=== PATIENT | male | born 1960 | race Caucasian/White ===

== ENCOUNTER 2017-04-19 06:00 | Day surgery (SDC) | payer OTHER ==
[2017-04-19] MEDS ORDERED: Lactated Ringers 1,000 ML IV SCH (06:30)
--- NOTE | 2017-04-19 08:31 | OP ---
SURGERY DATE/TIME: 04/19/2017 0745 PREOPERATIVE DIAGNOSIS: Screening exam. POSTOPERATIVE DIAGNOSIS: Normal colon. PROCEDURE: Colonoscopy. SURGEON: Dr. Clifton. ANESTHESIA: MAC. Medications given by anesthesia department. HISTORY: The patient is a 56 year-old white male patient presenting now for his first screening colonoscopy. He was appraised of the risks of the procedure including the risk of perforation, phlebitis, untoward reaction to medication, bleeding, and missed lesions. The patient verbalized his understanding and desired to have the procedure performed. DESCRIPTION OF PROCEDURE: The patient was given the medications by the anesthesia department. The patient had continuous pulse oximetry, ECG monitoring, intermittent blood pressure monitoring, and tidal CO2 monitoring during the examination. He was placed in the left lateral decubitus position. A digital rectal examination was performed and revealed normal anal sphincter tone and no masses and normal prostae. The flexible Olympus pediatric colonoscope was used to intubate the rectum. A view of the colon was developed sequentially to the cecum. Upon insertion and withdrawal, including a retroflex view in the rectum, no mucosal lesions were encountered. The scope was removed from the patient who tolerated the procedure well and was sent back to OP recovery in good condition. The prep was noted to be fair.
[2017-04-19 08:45] VITALS: PULSE 66
[2017-04-19 08:59] VITALS: BP 129/82; O2SAT 98
[2017-04-19] MEDS ORDERED: DIPRIVAN 200 MG/20 ML IV ONE ×2 (09:00)
[2017-04-19] MEDS ORDERED: Versed 2 MG/2 ML Injection IV ONE (09:00)
== END 2017-04-19 09:05 | disposition home or self-care (01) ==
LOC: SDC 06:00
PROVIDERS: ATTEND Family Medicine
PROC: 0DJD8ZZ Inspection of Lower Intestinal Tract, Via Natural or Artificial Opening Endoscopic (ICD-10-PCS; principal; 2017-04-19)
DX: Z12.11 Encounter for screening for malignant neoplasm of colon (principal)
CPT/HCPCS: 00810; J2250; J2704

== ENCOUNTER 2017-08-26 05:57 | Day surgery (SDC) | payer OTHER ==
[2017-08-26] MEDS ORDERED: Versed 2 MG/2 ML Injection IV ONE (05:58)
[2017-08-26] MEDS ORDERED: DIPRIVAN 200 MG/20 ML IV ONE (05:58)
[2017-08-26] MEDS ORDERED: Lactated Ringers 1,000 ML IV SCH (07:00)
[2017-08-26 08:36] VITALS: BP 137/72; PULSE 18; O2SAT 98
--- NOTE | 2017-08-26 14:11 | OP ---
SURGERY DATE/TIME: 08/26/2017 0733 PREOPERATIVE DIAGNOSIS: Chest pain. POSTOPERATIVE DIAGNOSIS: Hiatal hernia. PROCEDURE: Esophagogastroduodenoscopy with biopsy. SURGEON: Dr. Clifton. ANESTHESIA: Medications were given by the anesthesia department. HISTORY: The patient is a 56 year old white male patient presenting now with complaints of chest pain. He reports the pain at times radiates through to his back. He was felt the need to have endoscopic evaluation. He was appraised of the risks of the procedure including the risk of perforation, phlebitis, untoward reaction to medication, bleeding and missed lesions. The patient verbalized his understanding and desired to have the procedure performed. DESCRIPTION OF PROCEDURE: The patient was given the medications by the anesthesia department. He had continuous pulse oximetry, ECG monitoring, intermittent blood pressure monitoring and tidal CO2 monitoring during the examination. He was placed in the left lateral decubitus position. A bite block was placed. A flexible Olympus gastroscope was used to intubate the oropharynx. A view of the larynx was obtained and was normal. The scope was introduced in the esophagus. There appeared to be a hiatal hernia in the lower portion of the esophagus. The stomach was entered where normal gastric rugal folds were seen and these distended nicely with insufflation of air. The scope was passed along the greater curvature of the stomach to the antrum. The pylorus was encountered and intubated. The duodenum was inspected and found to be normal. The scope was withdrawn towards the stomach. Retroflex view of the lesser curvature, fundus and cardia regions of the stomach again revealed hiatal hernia but no other mucosal lesions were encountered. The scope was then redirected towards the gastric antrum where biopsies were obtained to rule out the presence of Helicobacter pylori-type organisms. The scope was then removed from the patient who tolerated the procedure well and was sent back to outpatient recovery in good condition.
== END 2017-08-26 09:25 | disposition home or self-care (01) ==
LOC: SDC 05:57
PROVIDERS: ATTEND Family Medicine
PROC: 0DB68ZX Excision of Stomach, Via Natural or Artificial Opening Endoscopic, Diagnostic (ICD-10-PCS; principal; 2017-08-26)
DX: K44.9 Diaphragmatic hernia without obstruction or gangrene (principal)
CPT/HCPCS: 00740; 36415; 88305; J2250; J2704

== ENCOUNTER 2024-12-09 08:25 | Emergency (ER) | payer MEDICARE ==
[2024-12-09 08:43] VITALS: TEMP 97.3
--- NOTE | 2024-12-09 08:59 | ERPHSYRPT ---
- History of Present Illness Time Seen by Provider: 12/09/24 08:50 Source: patient Exam Limitations: no limitations Patient Subjective Stated Complaint: here for numbness to right leg and righ shoulder Triage Nursing Assessment: pt is here for numbness to right lower leg and right shoulder off and on for 2-3 days now, no injury, resp easy, chest clear, abd soft, moves all ext well,strong clerical adviser Physician History: 64-year-old male presents to our ED for evaluation of numbness to his right face right shoulder and right leg. Symptoms started about 2 to 3 days ago. Patient reports that he did not immediately seek attention as he felt the numbness was related to his medication. Patient reports that the facial numbness has since resolved. However the shoulder numbness has improved but not completely resolved. The leg numbness is unchanged. No trauma no fever no weakness. No headache. No nausea no vomiting no diarrhea no rash. No slurred speech no facial droop. No chest pain or shortness of breath. Patient's symptoms are mild to moderate in intensity. No specific worsening or improving factors. Patient denies a history of the same. He otherwise feels well. Patient voices no other complaints or concerns at this time. Patient took 325 mg of aspirin prior to arrival Portions of this note were created with voice recognition technology. There may be grammatical, spelling, punctuation or sound alike errors Timing/Duration: day(s) (2 to 3 days ago) Severity: moderate Modifying Factors: Improves With: nothing Associated Symptoms: denies symptoms Allergies/Adverse Reactions: No Known Drug Allergies Allergy (Verified 12/09/24 08:32) Home Medications: Cetirizine HCl [Zyrtec] 10 mg PO DAILY 04/18/17 [History] LORazepam [Ativan] 1 mg PO BID 04/18/17 [History] Metoprolol Succinate [Toprol Xl] 100 mg PO DAILY 04/18/17 [History] Omeprazole 20 MG [Prilosec 20 mg] 20 mg PO DAILY 04/18/17 [History] Acyclovir 800 mg [Acyclovir] 1 ea TID 12/09/24 [History] Podofilox 1 ea DAILY 12/09/24 [History] Hx Tetanus, Diphtheria Vaccination/Date Given: No Hx Influenza Vaccination/Date Given: Yes Hx Pneumococcal Vaccination/Date Given: Yes Immunizations Up to Date: Yes Travel Risk - International Travel Have you traveled outside of the country in past 3 weeks: No - Review of Systems Constitutional: No Symptoms, No Fever, No Chills Eyes: No Symptoms Ears, Nose, & Throat: No Symptoms Respiratory: No Symptoms, No Cough, No Dyspnea Cardiac: No Symptoms, No Chest Pain, No Edema, No Syncope Abdominal/Gastrointestinal: No Symptoms, No Abdominal Pain, No Nausea, No Vomiting, No Diarrhea Genitourinary Symptoms: No Symptoms, No Dysuria Musculoskeletal: No Symptoms, No Back Pain, No Neck Pain Skin: No Symptoms, No Rash Neurological: No Symptoms, No Dizziness, No Focal Weakness, No Sensory Changes Psychological: No Symptoms Endocrine: No Symptoms Hematologic/Lymphatic: No Symptoms Immunological/Allergic: No Symptoms All Other Systems: Reviewed and Negative - Past Medical History Pertinent Past Medical History: Yes Neurological History: No Pertinent History ENT History: No Pertinent History Cardiac History: Hypertension Respiratory History: No Pertinent History Endocrine Medical History: No Pertinent History Musculoskeletal History: No Pertinent History GI Medical History: GERD History: No Pertinent History Psycho-Social History: Anxiety Male Reproductive Disorders: No Pertinent History Other Medical History: 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 - Past Surgical History Past Surgical History: No Neuro Surgical History: No Pertinent History Cardiac: No Pertinent History Respiratory: No Pertinent History Gastrointestinal: No Pertinent History Genitourinary: No Pertinent History Musculoskeletal: No Pertinent History Male Surgical History: No Pertinent History - Social History Smoking Status: Never smoker Exposure to second hand smoke: No Drug Use: none - Social Determinants of Health Will the patient participate in the screening: Yes Do you worry about a steady place to live?: No Do you have any problems with any of the following?: No known problems In the past 12 months,have you had to go without utilities?: No Transportation Issues: No Has anyone in your support network made you feel unsafe?: No Have you or anyone in your house had to go without enough: No - Nursing Vital Signs Nursing Vital Signs: Initial Vital Signs Pulse Rate 90 12/09/24 08:32 Respiratory Rate 14 12/09/24 08:32 Blood Pressure 188/113 12/09/24 08:32 O2 Sat by Pulse Oximetry 98 12/09/24 08:32 Pain Scale Pain Intensity 0 - Physical Exam General Appearance: no apparent distress, alert Eye Exam: PERRL/EOMI, eyes nml inspection Ears, Nose, Throat Exam: normal ENT inspection, TMs normal, pharynx normal, moist mucous membranes Neck Exam: normal inspection, non-tender, supple, full range of motion Respiratory Exam: normal breath sounds, lungs clear, No respiratory distress Cardiovascular Exam: regular rate/rhythm, normal heart sounds, normal peripheral pulses Gastrointestinal/Abdomen Exam: soft, normal bowel sounds, No tenderness, No mass Back Exam: normal inspection, normal range of motion, No CVA tenderness, No vertebral tenderness Extremity Exam: normal inspection, normal range of motion, pelvis stable Neurologic Exam: alert, oriented x 3, cooperative, normal mood/affect, sensation nml, No motor deficits Skin Exam: normal color, warm, dry, No rash Lymphatic Exam: No adenopathy SpO2 Interpretation: normal SpO2: 98 O2 Delivery: Room Air - Course Nursing assessment & vital signs reviewed: Yes EKG Interpreted by Me: RATE (91), Sinus Rhythm, NORMAL AXIS, NORMAL INTERVALS, NORMAL QRS - CT Exams Head CT Interpretation: Tele-radiologist Report (Old left lacunar infarct left basal ganglia. No acute intracranial findings) Ordered Tests: Active Orders 24 hr Category Date Time Status Head Bone Grinder STAT Care 12/09/24 08:49 Active EKG-ER Only STAT Care 12/09/24 08:48 Active IV Insertion STAT Care 12/09/24 08:48 Active Pulse Oximetry (ED) STAT Care 12/09/24 08:48 Active Tele-Health Consult ROUTINE Cons 12/09/24 11:19 Active HEAD WITHOUT CONTRAST [CT] Stat Exams 12/09/24 08:50 Completed CBC W DIFF Stat Lab 12/09/24 08:58 Completed CMP Stat Lab 12/09/24 08:58 Completed TROPONIN Q4H Lab 12/09/24 08:58 Completed TROPONIN Q4H Lab 12/09/24 13:00 Ordered TROPONIN Q4H Lab 12/09/24 17:00 Ordered Medication Summary Generic Name Dose Route Start Last Admin Trade Name Freq PRN Reason Stop Dose Admin Sodium Chloride 1,000 mls @ 50 mls/hr 12/09/24 09:00 12/09/24 09:21 Sodium Chloride 0.9% 1000 Ml IV 01/08/25 08:59 50 mls/hr .Q20H PRISCILA Administration Lab/Rad Data: Laboratory Result Diagrams 12/09/24 08:58 12/09/24 08:58 Laboratory Results 12/09/24 12/09/24 12/09/24 Range/Units 08:58 08:58 08:58 WBC 7.7 (4.23-9.07) x10^3/uL RBC 4.93 (4.63-6.08) x10^6/uL Hgb 15.3 (13.7-17.5) g/dL Hct 44.7 (40.1-51.0) % MCV 90.7 (79.0-92.2) fL MCH 31.0 (25.7-32.2) pg MCHC 34.2 (32.3-36.5) g/dL RDW 12.4 (11.6-14.4) % Plt Count 218 (163-337) x10^3/uL MPV 9.8 (9.4-12.4) fL Gran % 70.8 H (34.0-67.9) % Immature Gran % (Auto) 0.3 (0.001-0.429) % Nucleat RBC Rel Count 0.0 (0.00-0.2) % Eos # (Auto) 0.03 L (0.04-0.54) x10^3/uL Immature Gran # (Auto) 0.02 (0.001-0.031) x10^3u/L Absolute Lymphs (auto) 1.57 (1.32-3.57) x10^3/uL Absolute Monos (auto) 0.59 (0.30-0.82) x10^3/uL Absolute Nucleated RBC 0.00 (0.00-0.012) x10^3u/L Lymphocytes % 20.4 L (21.8-53.1) % Monocytes % 7.7 (5.3-12.2) % Eosinophils % 0.4 L (0.8-7.0) % Basophils % 0.4 (0.2-1.2) % Absolute Granulocytes 5.46 H (1.78-5.38) x10^3/uL Basophils # 0.03 (0.01-0.08) x10^3/uL Sodium 139 (135-145) mmol/L Potassium 4.0 (3.5-5.1) mmol/L Chloride 105 (98-107) mmol/L Carbon Dioxide 25 (22-30) mmol/L Anion Gap 12.6 (5-15) MEQ/L BUN 17 (9-20) mg/dL Creatinine 1.04 (0.66-1.25) mg/dL Estimated GFR 79.2 ML/MIN Glucose 128 H (74-106) mg/dL Calcium 9.1 (8.4-10.2) mg/dL Total Bilirubin 0.50 (0.2-1.3) mg/dL AST 35 (17-59) U/L ALT 36 (0-50) U/L Alkaline Phosphatase 108 (38-126) U/L Troponin I < 0.012 (0.000-0.033) ng/mL Serum Total Protein 7.1 (6.3-8.2) g/dL Albumin 4.2 (3.5-5.0) g/dL - Progress Progress: improved Progress Note: 64-year-old male presents to our ED for evaluation of numbness to his face shoulder and right leg. CT shows no acute intracranial pathology however there was a left lacunar basal ganglier infarct. Laboratory workup essentially nonremarkable. Teleneurology consulted. Neurologist advises hospitalization daily aspirin statin MRI. However patient states he has home obligations. He cannot stay. Patient will be leaving AMA. Patient will continue taking the aspirin as recommended. He will contact his primary care doctor for the MRI and other recommendations per the neurologist. Patient will be discharged AGAINST MEDICAL ADVICE. Risk and benefits discussed. Patient is of sound mind. Patient is appropriate to make informed and independent medical decisions. Patient understands that leaving AGAINST MEDICAL ADVICE can result in delayed diagnosis, increased risk of morbidity, mortality, short and long-term disability including . In spite of these risks, patient has decided to leave AGAINST MEDICAL ADVICE. Patient understands that he may return to our ED at any point if he reconsiders. Patient agrees to follow-up with his primary care doctor within 48 hours for reevaluation. Patient voices no other complaints or concerns at this time. We will release patient AGAINST MEDICAL ADVICE per their request. Complexity of problem addressed is moderate acute complicated. No critical care time. Complex of data reviewed and analyzed is extensive. Test ordered chest reviewed results analyzed and correlated clinically with history and physical exam. I discussed the case with neurologist at 11:49 AM. He advised hospitalization. Other recommendations made as well. Please see his note for details. Risk of complication and or risk of morbidity/mortality of patient man agement is low. Vital stable. Time spent to discharge patient approximately 15 minutes. Patient has decided to leave AMA. No social determinants of health present to impede follow-up. Portions of this note were created with voice recognition technology. There may be grammatical, spelling, punctuation or sound alike errors 12/09/24 11:58 Counseled pt/family regarding: lab results, diagnosis, need for follow-up, rad results - Departure Departure Disposition: AMA Clinical Impression: Stroke, Leg numbness Condition: Stable Critical Care Time: No Referrals: LETA HIGH MD [Primary Care Provider] - Follow up/PCP as directed Additional Instructions: Discharge/Care Plan CRISSY PATEL was seen on 12/09/24 in the Emergency Room. The patient was counseled regarding Diagnosis,Lab results, Imaging studies, need for follow up and when to return to the Emergency Room. Prescriptions given: Discharge Note I have spoken with the patient and/or caregivers. I have explained the patient's condition, diagnosis and treatment plan based on the information available to me at this time. I have answered the patient's and/or caregiver's questions and addressed any concerns. The patient and/or caregivers have as good understanding of the patient's diagnosis, condition and treatment plan as can be expected at this point. The vital signs have been stable. The patient's condition is stable and appropriate for discharge from the emergency department. The patient will pursue further outpatient evaluation with the primary care physician or other designated or consulting physician as outlined in the discharge instructions. The patient and/or caregivers are agreeable to this plan of care and follow-up instructions have been explained in detail. The patient and/or caregivers have received these instruction. The patient/and or caregivers are aware that any significant change in condition or worsening of symptoms should prompt an immediate return to this or the closest emergency department or call 911.
[2024-12-09 09:00] LABS: Absolute Neutrophil Ct (ANC) 5.46 x10^3/uL (1.78-5.38); BASOPHIL % 0.4 % (0.2-1.2); Basophil (Absolute #) 0.03 x10^3/uL (0.01-0.08); Eosinophil % 0.4 % (0.8-7.0); Eosinophil (Absolute #) 0.03 x10^3/uL (0.04-0.54); Hematocrit 44.7 % (40.1-51.0); Hemoglobin 15.3 g/dL (13.7-17.5); IMMATURE GRAN # 0.02 x10^3u/L (0.001-0.031); IMMATURE GRAN % 0.3 % (0.001-0.429); Lymphocyte (Absolute #) 1.57 x10^3/uL (1.32-3.57); Lymphocytes % 20.4 % (21.8-53.1); Mean Cell Volume 90.7 fL (79.0-92.2); Mean Corpuscular Hgb Concent. 34.2 g/dL (32.3-36.5); Mean Platelet Volume 9.8 fL (9.4-12.4); Monocyte (Absolute #) 0.59 x10^3/uL (0.30-0.82); Monocytes % 7.7 % (5.3-12.2); Neutrophil % 70.8 % (34.0-67.9); Platelet Count 218 x10^3/uL (163-337); Red Blood Count 4.93 x10^6/uL (4.63-6.08); Red Cell Distribution Width 12.4 % (11.6-14.4); White Blood Count 7.7 x10^3/uL (4.23-9.07)
[2024-12-09 09:14] LABS: Creatinine 1 1.04 mg/dL (0.66-1.25); EST GLOMERULAR FILTRATION RATE 79.2 ML/MIN
[2024-12-09 09:15] LABS: ALBUMIN 4.2 g/dL (3.5-5.0); ANION GAP 12.6 MEQ/L (5-15); BILIRUBIN,TOTAL 0.5 mg/dL (0.2-1.3); Calcium 9.1 mg/dL (8.4-10.2); Total Protein 7.1 g/dL (6.3-8.2)
[2024-12-09] MEDS ORDERED: Sodium Chloride 0.9% 1000 ML 1,000 ML ONE (09:19)
[2024-12-09] MEDS: Sodium Chloride 0.9% 1000 ML 1,000 ML IV SCH (09:21)
--- NOTE | 2024-12-09 09:40 | XRAY ---
Indication: Right leg and right facial numbness. Multiple contiguous images obtained through the head without contrast. Comparison: None Ventriculosulcal pattern appears symmetric. 6 mm remote lacunar infarct left basal ganglia. No acute intracranial hemorrhage, abnormal extra-axial fluid collection, or mass effect. Fourth ventricle is midline without hydrocephalus. José-white matter differentiation preserved. Bony calvarium intact. Visualized paranasal sinuses and mastoid air cells are clear. Impression: Remote lacunar infarct left basal ganglia. No acute intracranial abnormalities.
[2024-12-09 11:19] VITALS: BP 158/108; PULSE 70; RESP 18
--- NOTE | 2024-12-09 11:42 | PCM.CONS ---
History of Present Illness - Reason for Consult Chief Complaint: Right sided numbness and R shoulder pain Date of Consultation Date: 12/09/24 Reason for Consult: Stroke like sx Requesting Provider: Dr. Flores Consulting Provider: ROJAS GARCÍA MD History of Present Illness: Reason for Consultation: stroke like symptoms Chief complaint: right leg numbness and right shoulder pain HPI: this is a 64 year old right-handed white male with past medical history of hypertension, gastroesophageal reflux disease who came to the hospital because of right lower extremity numbness as well as right shoulder pain. He noted this today at 7:00 AM. He woke up at around 6:00 AM and was fine. When I asked whether he experienced it yesterday or the day before yesterday, patient denied it to me. However to the ER physician, patient told that the symptoms are going on for the last two to three days. He denies any weakness. No facial droop. No slurred speech or aphasia. No headache. When I asked about the numbness on the right side of the face, he did mention that right side of the face feels somewhat funny. He's not currently on aspirin. He told me that he used to be an aspirin about 10 years ago but he stopped using it because it gave him Constipation and when he stopped using aspirin, his Constipation got better period Vitals blood pressure 156 / 107 pulse 85 pulse ox of 96 breathing rate of 16 temperature of 97.3 labs reviewed and it chose WBC of 7.7 hemoglobin 15.3 hematocrit 44.7 platelet count of 2/18 sodium 139 potassium 4.0 chloride 105 bicarb 25 BUN 17 creatinine 1.04 City scan showed remote lacunar infarct in the left basal ganglia. no known drug allergies Medical history: diabetes Surgical history: UR Family history: HTN DM Social history: no smoking, alcohol use REVIEW OF SYSTEMS: 12-point review of system is negative unless otherwise mentioned in the HPI VITALS Vitals reviewed from today Physical Exam: Constitutional: Gen: NAD, pleasant, well nourished HEENT: NC/AT STEPHANIE MMM Neurologic Exam: Higher Functions: AA&Ox3; Tracks; Regards Follows simple and complex commands Communicates fluently and appropriately Memory is intact Concentration is normal Fund of Knowledge is appropriate. Language : Comprehension is intact; no aphasia; no dysarthria; repetition is intact; naming is normal; scene description is normal CN II : Visual youssef are full; Pupils constrict from 4mm to 2mm under bright light, are equal, round, and react briskly. CN III, IV, : EOMI; no nystagmus CN V : Facial sensation is full and symmetric CN VII : Facial movement is full and symmetric CN VIII : hearing intact BL CN IX, X : ANNETTE CN XI : SCM 5/5 BL CN XII : Tongue protrudes midline without fasciculations Sensory : intact to soft touch Motor : Strength 5/5 UE and LE BL Deep tendon reflexes : ANNETTE Plantar response : ANNETTE Jaazax-yi-Zafm : normal BL, no dysmetria Abnormal Movements : none seen Gait and Station : Normal (walked from the restroom to bed) NIH Stroke Scale 0 (0) 1a. Level of consciousness (LOC): 0=alert;1=arousable by minor stimulation;2=obtunded or needs strong stimulation to attend;3=unresponsive or reflex responses only (0) 1b. LOC Questions: 0=answers both;1=answers one;2=answers neither (0) 1c. LOC Commands: 0=performs both tasks;1=performs one task;2=performs neither task (0) 2. Best Gaze: 0=normal;1=partial gaze palsy;2=forced deviation or total gaze paresis (0) 3. Visual: 0=normal;1=partial hemianopia;2=complete hemianopia;3=blind (0) 4. Facial palsy: 0=normal;1=minor paresis;2=partial paralysis;3=complete paralysis FOR 5 AND 6 BELOW: 0=normal;1=drifts but maintains in air;2=unable to maintain in air;3=moves but unable to lift against gravity;4=no movement ( )0 (_)1 (_)2 (_)3 (_)4 (_)NA 5a. Motor arm-left ( )0 (_)1 (_)2 (_)3 (_)4 (_)NA 5b. Motor arm-right ( )0 (_)1 (_)2 (_)3 (_)4 (_)NA 6a. Motor leg-left ( )0 (_)1 (_)2 (_)3 (_)4 (_)NA 6ba. Motor leg-right ( ) 7. Limb ataxia:0=absent;1=unilateral;2=bilateral; NA=unable to test ( ) 8. Sensory: 0=normal;1=mild-moderate loss;2-severe or total loss ( ) 9. Best language: 0=normal;1=mild-moderate aphasia, some deficits apparent but able to communicate;2=severe aphasia, fragmentary expression only, unable to communicate well;3=global aphasia, mute and no comprehension ( ) 10. Dysarthria: 0=normal;1=mild-moderate, slurs some words;2=severe, speech mostly unintelligible; NA=unable to test (e.g.,intubation) ( ) 11. Extinction/Inattention: 0=normal;1=visual,tactile,auditory or other extinction to bilateral simultaneous stimulation, but no severe neglect;2=answers neither Imaging CTH -ve CTA CTP ASPECTS Candidate for Thrombolytics: not a candidate because of low NIH stroke scale of zero. He subjectively feels numb but sensations are intact bilaterally. Candidate for Intervention: Assessment: 64 year old white male came to the hospital because of right lower extremity numbness right shoulder pain. Right sided numbness: patient noted symptoms at around 7:00 AM this morning. He woke up at 6:00 AM and was fine. He noted right leg to be numb and right shoulder hurting. When I asked about the face numbness on the right side, he did mention that it felt different. Patient told the ER physician that this is going on for the last two to three days. Cat scan was obtained which showed lacunary stroke in the left basal ganglia which could be either chronic versus subacute. Not a candidate for TNK as a nice stroke scale is zero. He subjectively feels numb but sensations are intact (RN checked it for me) Plan: We'll recommend getting a MRI of brain and CT angiogram head and neck also mentioned to patient that he should be on a baby aspirin at 1 milligram and atorvastatin 40 milligram. For the recommendation based on the imaging studies. If MRI brain is positive for stroke, patient will need a formal stroke order set and stroke workup including echo cardiogram. Communicated plan with the emergency room physician RN and to the patient. I spent 70 minutes in emergent patient care. Thank you for allowing us to participate in this patients care. Please call [facility] with questions, concerns, or change in patients neurological status. This consult was performed via secure telemedicine 2 way audio/visual platform, patient consent obtained. Medications & Allergies Home Medications: Home Medication List Cetirizine HCl [Zyrtec] 10 mg PO DAILY 04/18/17 [History Confirmed 12/09/24] LORazepam [Ativan] 1 mg PO BID 04/18/17 [History Confirmed 12/09/24] Metoprolol Succinate [Toprol Xl] 100 mg PO DAILY 04/18/17 [History Confirmed 12/09/24] Omeprazole 20 MG [Prilosec 20 mg] 20 mg PO DAILY 04/18/17 [History Confirmed 12/09/24] Acyclovir 800 mg [Acyclovir] 1 ea TID 12/09/24 [History Confirmed 12/09/24] Podofilox 1 ea DAILY 12/09/24 [History Confirmed 12/09/24] Allergies/Adverse Reactions: Allergies Allergy/AdvReac Type Severity Reaction Status Date / Time No Known Drug Allergies Allergy Verified 12/09/24 08:32 - Past Medical History Past Medical History: Yes Neurological History: No Pertinent History ENT History: No Pertinent History Cardiac History: Hypertension Respiratory History: No Pertinent History Endocrine Medical History: No Pertinent History Musculoskelatal History: No Pertinent History GI Medical History: GERD History: No Pertinent History Pyscho-Social History: Anxiety Male Reproductive Disorders: No Pertinent History Comment: 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 - Past Surgical History Past Surgical History: No Neuro Surgical History: No Pertinent History Cardiac History: No Pertinent History Respiratory Surgery: No Pertinent History GI Surgical History: No Pertinent History Genitourinary Surgical Hx: No Pertinent History Musculskeletal Surgical Hx: No Pertinent History Male Surgical History: No Pertinent History - Social History Smoking Status: Never smoker Exposure to second hand smoke: No Alcohol: Daily Drug Use: none - Social Determinants of Health Will the patient participate in the screening: Yes Do you worry about a steady place to live?: No Do you have any problems with any of the following?: No known problems In the past 12 months,have you had to go without utilities?: No Have you or anyone in your house had to go without enough: No Transportation Issues: No Has anyone in your support network made you feel unsafe?: No - Physical Exam Vital Signs: Vital Signs - 24 hr Temp Pulse Resp BP BP Pulse Ox 12/09/24 11:00 70 18 158/108 96 12/09/24 10:30 68 18 153/98 97 12/09/24 10:00 72 18 161/107 96 12/09/24 09:54 98 12/09/24 09:30 85 16 156/107 96 12/09/24 09:06 80 16 159/107 96 12/09/24 08:52 98 12/09/24 08:41 97.3 F 93 H 16 186/116 98 12/09/24 08:39 186/116 98 12/09/24 08:32 90 14 188/113 98 Results - Labs Lab/Micro Results: Lab Results-Last 24 Hours 12/09/24 12/09/24 12/09/24 Range/Units 08:58 08:58 08:58 WBC 7.7 (4.23-9.07) x10^3/uL RBC 4.93 (4.63-6.08) x10^6/uL Hgb 15.3 (13.7-17.5) g/dL Hct 44.7 (40.1-51.0) % MCV 90.7 (79.0-92.2) fL MCH 31.0 (25.7-32.2) pg MCHC 34.2 (32.3-36.5) g/dL RDW 12.4 (11.6-14.4) % Plt Count 218 (163-337) x10^3/uL MPV 9.8 (9.4-12.4) fL Gran % 70.8 H (34.0-67.9) % Immature Gran % (Auto) 0.3 (0.001-0.429) % Nucleat RBC Rel Count 0.0 (0.00-0.2) % Eos # (Auto) 0.03 L (0.04-0.54) x10^3/uL Immature Gran # (Auto) 0.02 (0.001-0.031) x10^3u/L Absolute Lymphs (auto) 1.57 (1.32-3.57) x10^3/uL Absolute Monos (auto) 0.59 (0.30-0.82) x10^3/uL Absolute Nucleated RBC 0.00 (0.00-0.012) x10^3u/L Lymphocytes % 20.4 L (21.8-53.1) % Monocytes % 7.7 (5.3-12.2) % Eosinophils % 0.4 L (0.8-7.0) % Basophils % 0.4 (0.2-1.2) % Absolute Granulocytes 5.46 H (1.78-5.38) x10^3/uL Basophils # 0.03 (0.01-0.08) x10^3/uL Sodium 139 (135-145) mmol/L Potassium 4.0 (3.5-5.1) mmol/L Chloride 105 (98-107) mmol/L Carbon Dioxide 25 (22-30) mmol/L Anion Gap 12.6 (5-15) MEQ/L BUN 17 (9-20) mg/dL Creatinine 1.04 (0.66-1.25) mg/dL Estimated GFR 79.2 ML/MIN Glucose 128 H (74-106) mg/dL Calcium 9.1 (8.4-10.2) mg/dL Total Bilirubin 0.50 (0.2-1.3) mg/dL AST 35 (17-59) U/L ALT 36 (0-50) U/L Alkaline Phosphatase 108 (38-126) U/L Troponin I < 0.012 (0.000-0.033) ng/mL Serum Total Protein 7.1 (6.3-8.2) g/dL Albumin 4.2 (3.5-5.0) g/dL - Radiology Impressions Radiology Exams & Impressions: Radiology Procedures Category Date Time Status HEAD WITHOUT CONTRAST [CT] Stat Exams 12/09/24 08:50 Completed
[2024-12-09 12:02] VITALS: O2SAT 98
== END 2024-12-09 12:01 | disposition left against medical advice (07) ==
LOC: ED 08:25
DX: I63.9 Cerebral infarction, unspecified (principal); R20.0 Anesthesia of skin; I10 Essential (primary) hypertension; Z79.899 Other long term (current) drug therapy
CPT/HCPCS: 36415; 70450; 80053; 84484; 85025; 93005; 93041; 94760; 99285; Q3014; 99284